=== PATIENT | female | born 1985 | race African-American/Black ===

== ENCOUNTER 2016-11-30 19:03 | Emergency (ER) | payer MEDICAID, OTHER ==
[~2016-11-30] VITALS: Ht 182.9 cm; Wt 61.0 kg
[~2016-11-30 19:03] MED LIST: IBUP-779 PO; IRON-15 PO; MULT-1146 PO
[2016-11-30] MEDS ORDERED: SODIUM CHLORIDE 0.9% 1,000 ML IV ONE (19:31)
[2016-11-30 20:06] LABS: BASOPHILS % 0.7 % (0.0-2.0); EOSINOPHILS % 0.8 % (0.0-5.0); HEMATOCRIT. 34.3 % (36.0-48.0); HEMOGLOBIN. 11.7 g/dL (12.0-16.0); LYMPHOCYTES % 30.6 % (20.0-50.0); MEAN CORPUSCULAR HEMOGLOBIN 29.6 pg (28.0-32.0); MEAN CORPUSCULAR HGB CONC 34.1 g/dL (31.0-37.0); MEAN CORPUSCULAR VOLUME 86.9 fL (81.0-99.0); MEAN PLATELET VOLUME 8.3 fl (7.4-10.4); MONOCYTES % 10.7 % (2.0-8.0); NEUTROPHILS % 57.2 % (40.0-76.0); PLATELET 192 x1000/uL (130-400); RED BLOOD CELL COUNT 3.94 mill/uL (4.2-5.4); RED CELL DISTRIBUTION WIDTH 13.1 % (11.6-14.6); WHITE BLOOD COUNT 6.7 x1000/uL (4.5-11.0)
[2016-11-30 20:07] LABS: CHLORIDE 103 mEq/L (98-107)
[2016-11-30 20:10] LABS: CALCIUM 9.2 mg/dL (8.5-10.1); INDEX HEMOLYSI 1 (1-3); INDEX ICTERIC 1 (1-4); INDEX LIPEMIC 1 (1-3)
[2016-11-30 20:13] LABS: CLARITY URINE CLEAR (CLEAR); COLOR URINE YELLOW (YELLOW); GLUCOSE URINE NEGATIVE (NEGATIVE); KETONES URINE 3+ (NEGATIVE); LEUKOCYTE ESTERASE URINE 1+ (NEGATIVE); NITRITE URINE NEGATIVE (NEGATIVE); OCCULT BLOOD URINE NEGATIVE (NEGATIVE); PROTEIN URINE NEGATIVE (NEGATIVE); SPECIFIC GRAVITY URINE 1.028 (1.005-1.030)
[2016-11-30 20:16] LABS: ANION GAP 12; CARBON DIOXIDE 25 mEq/L (21-32); UREA NITROGEN BLOOD 13 mg/dL (7-21); eGFR > 60 mL/min (>60)
[2016-11-30 20:18] LABS: TROPONIN I < 0.02 ng/mL (0.00-0.04)
[2016-11-30 20:29] LABS: MUCUS URINE 1+ /lpf (< = 2+)
[2016-11-30 20:30] LABS: SQUAMOUS EPITHELIAL CELL URINE 1+ /lpf (RARE/1+)
[2016-11-30 20:32] LABS: B-HCG QUANTITATIVE 50320 mIU/mL (<3)
[2016-11-30 20:34] LABS: BACTERIA URINE 1+
[2016-11-30 22:45] VITALS: BP 120/72
== END 2016-11-30 22:45 | disposition home or self-care (01) ==
LOC: ER 19:09
DX: O26.891 Other specified pregnancy related conditions, first trimester (principal); R55 Syncope and collapse; E16.2 Hypoglycemia, unspecified; E86.0 Dehydration; Z3A.14 14 weeks gestation of pregnancy
CPT/HCPCS: 36415; 76801; 80048; 81001; 84484; 84702; 85025; 86850; 86900; 93005; 96360; 96361; 99285; J7030

== ENCOUNTER 2017-03-19 11:42 | Observation (INO) | payer MEDICAID, OTHER ==
[~2017-03-19] VITALS: Ht 172.7 cm; Wt 74.8 kg
[2017-03-19] MEDS ORDERED: SODIUM CHLORIDE 0.9% 1,000 ML IV SCH (13:15)
[2017-03-19 13:55] LABS: CLARITY URINE CLEAR (CLEAR); COLOR URINE YELLOW (YELLOW); GLUCOSE URINE NEGATIVE (NEGATIVE); KETONES URINE NEGATIVE (NEGATIVE); LEUKOCYTE ESTERASE URINE TRACE (NEGATIVE); NITRITE URINE NEGATIVE (NEGATIVE); OCCULT BLOOD URINE NEGATIVE (NEGATIVE); PROTEIN URINE NEGATIVE (NEGATIVE); SPECIFIC GRAVITY URINE 1.026 (1.005-1.030)
[2017-03-19] MEDS ORDERED: ACETAMINOPHEN 500MG TABLET PO SCH (15:00)
== END 2017-03-19 15:30 | disposition home or self-care (01) ==
LOC: NUR 11:42 → L&D 12:10
PROVIDERS: ADMIT Obstetrics & Gynecology; ATTEND Obstetrics & Gynecology
DX: O26.853 Spotting complicating pregnancy, third trimester (principal); O26.893 Other specified pregnancy related conditions, third trimester; R10.30 Lower abdominal pain, unspecified; Z3A.30 30 weeks gestation of pregnancy
CPT/HCPCS: 76815; 81001; 96360; 99281; G0378; J7030; 96361

== ENCOUNTER 2018-09-16 08:58 | Inpatient (IN) | payer MEDICAID, OTHER ==
[~2018-09-16] VITALS: Ht 172.7 cm; Wt 78.5 kg
[~2018-09-16 08:58] MED LIST changes: -IBUP-779 PO
[2018-09-16] MEDS ORDERED: LACTATED RINGERS 1,000 ML IV SCH (09:22)
[2018-09-16] MEDS ORDERED: DEXT 5%/LR + PITOCIN 20UNITS/L 1,000 ML IV SCH ×2 (09:22→11:22)
[2018-09-16] MEDS ORDERED: CARBOPROST TROMETHAMINE 250 MCG/ML AMPUL IM PRN (09:30)
[2018-09-16] MEDS ORDERED: LIDOCAINE HCL 1% 20ML VIAL (Pyxis) INJ INFIL SCH (09:30)
[2018-09-16] MEDS ORDERED: NALOXONE HCL 0.4 MG/ML 1ML VIAL IM PRN (09:30)
[2018-09-16] MEDS ORDERED: BUTORPHANOL TARTRATE 2 MG/ML VIAL IV PRN (09:30)
[2018-09-16] MEDS ORDERED: METHYLERGONOVINE MALEATE 0.2 MG/ML IM PRN ×2 (09:30→11:30)
[2018-09-16 09:52] LABS: EOSINOPHILS % 0.7 % (0.0-5.0); HEMOGLOBIN. 12.3 g/dL (12.0-16.0); LYMPHOCYTES % 30.8 % (20.0-50.0); MEAN CORPUSCULAR HEMOGLOBIN 30.4 pg (28.0-32.0); MONOCYTES % 12.4 % (2.0-8.0); NEUTROPHILS % 55.1 % (40.0-76.0); PLATELET 171 x1000/uL (130-400); RED BLOOD CELL COUNT 4.04 mill/uL (4.2-5.4); RED CELL DISTRIBUTION WIDTH 13.3 % (11.6-14.6)
[2018-09-16 10:01] LABS: PROTHROMBIN TIME 9.8 sec (9.1-11.1)
[2018-09-16] MEDS ORDERED: LANOLIN OINT 0.25 GM TUBE TOP PRN (11:30)
[2018-09-16] MEDS ORDERED: RHO(D) IMMUNE GLOBULIN 300 MCG/SYR IM PRN (11:30)
[2018-09-16] MEDS ORDERED: IBUPROFEN 400MG TABLET PO PRN (11:30)
[2018-09-16 11:36] LABS: HEPATITIS B SURFACE ANTIGEN NEGATIVE
[2018-09-16] MEDS: IBUPROFEN 800MG TABLET PO PRN (11:40)
[2018-09-16 12:38] LABS: CLARITY URINE CLEAR (CLEAR); COLOR URINE YELLOW (YELLOW); KETONES URINE NEGATIVE (NEGATIVE); LEUKOCYTE ESTERASE URINE NEGATIVE (NEGATIVE); NITRITE URINE POSITIVE (NEGATIVE); OCCULT BLOOD URINE NEGATIVE (NEGATIVE); PH URINE 7.5 (4.5-8.0); PROTEIN URINE NEGATIVE (NEGATIVE); SPECIFIC GRAVITY URINE 1.012 (1.005-1.030)
[2018-09-16 12:55] VITALS: BP 109/53
[2018-09-16 12:57] LABS: *AMPHETAMINES SCREEN URINE NEGATIVE (NEGATIVE); *BARBITURATES SCREEN URINE NEGATIVE (NEGATIVE); *BENZODIAZEPINES SCREEN URINE NEGATIVE (NEGATIVE)
[2018-09-16 12:58] LABS: *COCAINE SCREEN URINE NEGATIVE (NEGATIVE); CANNABINOID URINE SCREEN NEGATIVE (NEGATIVE); PHENCYCLIDINE URINE SCREEN NEGATIVE (NEGATIVE)
[2018-09-16 13:00] LABS: METHADONE URINE SCREEN NEGATIVE (NEGATIVE)
[2018-09-16 13:01] LABS: OPIATES URINE SCREEN NEGATIVE (NEGATIVE)
[2018-09-16 13:25] VITALS: BP 114/57
[2018-09-16 20:00] VITALS: BP 105/62
[2018-09-16] MEDS ORDERED: TETANUS, DIPHTHERIA, PERTUSSIS VAC/PF 0.5ML (>7YR OLD) IM ONE (22:30)
[2018-09-17 04:00] VITALS: BP 103/56
[2018-09-17] MEDS: IBUPROFEN 800MG TABLET PO PRN ×4 (04:28→22:28)
[2018-09-17 05:55] LABS: BASOPHILS % 0.3 % (0.0-2.0); EOSINOPHILS % 1.4 % (0.0-5.0); HEMATOCRIT. 33.4 % (36.0-48.0); HEMOGLOBIN. 11.4 g/dL (12.0-16.0); LYMPHOCYTES % 32.4 % (20.0-50.0); MEAN CORPUSCULAR HEMOGLOBIN 30.5 pg (28.0-32.0); MEAN CORPUSCULAR VOLUME 89.3 fL (81.0-99.0); MEAN PLATELET VOLUME 9.6 fl (7.4-10.4); MONOCYTES % 8.7 % (2.0-8.0); NEUTROPHILS % 57.2 % (40.0-76.0); PLATELET 165 x1000/uL (130-400); RED BLOOD CELL COUNT 3.74 mill/uL (4.2-5.4); RED CELL DISTRIBUTION WIDTH 13.5 % (11.6-14.6)
[2018-09-17] MEDS: PRENATAL VIT/FE FUMARATE/FA TABLET PO SCH (08:25)
[2018-09-17 08:30] VITALS: BP 119/70
[2018-09-17 16:57] VITALS: BP 118/75
[2018-09-18] MEDS: IBUPROFEN 800MG TABLET PO PRN (05:21)
[2018-09-18] MEDS: PRENATAL VIT/FE FUMARATE/FA TABLET PO SCH (08:42)
[2018-09-18 08:56] VITALS: BP 108/61
== END 2018-09-18 11:30 | disposition home or self-care (01) | DRG 560 ==
LOC: OBSVTOIN 08:58 → INTOOBSV 08:58 → 8 EST LDRP 08:58 → 8EST 12:55
PROVIDERS: ADMIT Obstetrics & Gynecology; ATTEND Obstetrics & Gynecology
PROC: 10E0XZZ Delivery of Products of Conception, External Approach (ICD-10-PCS; principal; 2018-09-16)
DX: O80 Encounter for full-term uncomplicated delivery (principal); Z37.0 Single live birth; Z3A.38 38 weeks gestation of pregnancy
CPT/HCPCS: 36415; 80305; 86592; 86703; 86762; 86850; 86900; 87340; 90715; 99281; J0595; J2310; J2590